=== PATIENT | female | born 1995 | race Caucasian/White ===

== ENCOUNTER 2021-06-27 09:03 | Day surgery (SDC) | payer OTHER ==
[2021-06-27 09:51] VITALS: BMI 27.7
[2021-06-27] MEDS ORDERED: KETAMINE HCL 500 MG/10 ML VIAL ONE (11:11)
[2021-06-27 12:09] VITALS: TEMP 98.6
[2021-06-27 12:51] VITALS: BP 110/78; PULSE 88
[2021-06-28 14:08] LABS: SARS-CoV-2 NAA Not Detected (Not Detected)
== END 2021-06-27 13:00 | disposition home or self-care (01) ==
LOC: FECT 09:03
PROVIDERS: ATTEND Psychiatry & Neurology Psychiatry
PROC: GZB4ZZZ Other Electroconvulsive Therapy (ICD-10-PCS; principal; 2021-06-27 11:00)
DX: F32.9 Major depressive disorder, single episode, unspecified (principal)
CPT/HCPCS: 81025; 90870; 93005; 93010; 94760; C9803; U0003; U0005

== ENCOUNTER 2021-07-01 08:13 | Day surgery (SDC) | payer OTHER ==
[2021-06-28 15:48] VITALS: BMI 27.7
[2021-07-01] MEDS ORDERED: KETAMINE HCL 500 MG/10 ML VIAL ONE (09:32)
[2021-07-01] MEDS ORDERED: ONDANSETRON 4 MG/2 ML VIAL ONE (10:41)
[2021-07-01 11:38] VITALS: TEMP 98.1
[2021-07-01 12:17] VITALS: BP 103/59; PULSE 77
[2021-07-02 11:09] LABS: SARS-CoV-2 NAA Not Detected (Not Detected)
== END 2021-07-01 12:00 | disposition home or self-care (01) ==
LOC: FECT 08:13
PROVIDERS: ATTEND Psychiatry & Neurology Psychiatry
PROC: GZB4ZZZ Other Electroconvulsive Therapy (ICD-10-PCS; principal; 2021-07-01 10:30)
DX: F33.2 Major depressive disorder, recurrent severe without psychotic features (principal)
CPT/HCPCS: 81025; 90870; 94760; C9803; U0003; U0005

== ENCOUNTER 2021-07-04 06:20 | Day surgery (SDC) | payer OTHER ==
[2021-07-03 15:16] VITALS: BMI 27.7
[2021-07-04] MEDS ORDERED: KETAMINE HCL 500 MG/10 ML VIAL ONE (08:51)
[2021-07-04 09:25] VITALS: TEMP 98.6
[2021-07-04 10:24] VITALS: BP 122/70; PULSE 66
[2021-07-05 15:07] LABS: SARS-CoV-2 NAA Not Detected (Not Detected)
== END 2021-07-04 10:00 | disposition home or self-care (01) ==
LOC: FECT 06:20
PROVIDERS: ATTEND Psychiatry & Neurology Psychiatry
PROC: GZB4ZZZ Other Electroconvulsive Therapy (ICD-10-PCS; principal; 2021-07-04 09:00)
DX: F25.9 Schizoaffective disorder, unspecified (principal)
CPT/HCPCS: 90870; 94760; C9803; U0003; U0005

== ENCOUNTER 2021-07-08 06:54 | Day surgery (SDC) | payer OTHER ==
[2021-07-02 07:44] VITALS: BMI 27.7
[2021-07-08] MEDS ORDERED: KETAMINE HCL 500 MG/10 ML VIAL ONE (07:48)
[2021-07-08] MEDS ORDERED: SUCCINYLCHOLINE CHLORIDE 200 MG/10 ML SYRINGE ONE (08:02)
[2021-07-08] MEDS ORDERED: PROPOFOL 20 ML ONE (08:02)
[2021-07-08 08:32] VITALS: TEMP 99.1
[2021-07-08 09:19] VITALS: BP 112/74; PULSE 62
[2021-07-09 11:12] LABS: SARS-CoV-2 NAA Not Detected (Not Detected)
== END 2021-07-08 09:35 | disposition home or self-care (01) ==
LOC: FECT 06:54
PROVIDERS: ATTEND Psychiatry & Neurology Psychiatry
PROC: GZB4ZZZ Other Electroconvulsive Therapy (ICD-10-PCS; principal; 2021-07-08 09:00)
DX: F33.2 Major depressive disorder, recurrent severe without psychotic features (principal)
CPT/HCPCS: 81025; 90870; 94760; C9803; U0003; U0005

== ENCOUNTER 2021-07-11 06:40 | Day surgery (SDC) | payer OTHER ==
[2021-07-04 14:41] VITALS: BMI 27.7
[2021-07-11 09:36] VITALS: TEMP 98.1
[2021-07-11 10:02] VITALS: BP 110/67; PULSE 82
[2021-07-12 19:07] LABS: SARS-CoV-2 NAA Not Detected (Not Detected)
== END 2021-07-11 10:00 | disposition home or self-care (01) ==
LOC: FECT 06:40
PROVIDERS: ATTEND Psychiatry & Neurology Psychiatry
PROC: GZB4ZZZ Other Electroconvulsive Therapy (ICD-10-PCS; principal; 2021-07-11 08:30)
DX: F32.9 Major depressive disorder, single episode, unspecified (principal)
CPT/HCPCS: 90870; 94760; C9803; U0003; U0005

== ENCOUNTER 2021-07-15 06:32 | Day surgery (SDC) | payer OTHER ==
[2021-07-09 15:50] VITALS: BMI 27.7
[2021-07-15 09:11] VITALS: TEMP 97.5
[2021-07-15 10:11] VITALS: BP 110/70; PULSE 75
[2021-07-16 11:08] LABS: SARS-CoV-2 NAA Not Detected (Not Detected)
== END 2021-07-15 10:20 | disposition home or self-care (01) ==
LOC: FECT 06:32
PROVIDERS: ATTEND Psychiatry & Neurology Psychiatry
PROC: GZB4ZZZ Other Electroconvulsive Therapy (ICD-10-PCS; principal; 2021-07-15 09:00)
DX: F25.9 Schizoaffective disorder, unspecified (principal)
CPT/HCPCS: 81025; 90870; 94760; C9803; U0003; U0005

== ENCOUNTER 2021-07-18 06:38 | Day surgery (SDC) | payer OTHER ==
[2021-07-16 15:50] VITALS: BMI 27.7
[2021-07-18 12:01] VITALS: TEMP 97.8
[2021-07-18 12:10] VITALS: BP 102/61; PULSE 76
[2021-07-19 21:06] LABS: SARS-CoV-2 NAA Not Detected (Not Detected)
== END 2021-07-18 09:40 | disposition home or self-care (01) ==
LOC: FECT 06:38
PROVIDERS: ATTEND Psychiatry & Neurology Psychiatry
PROC: GZB4ZZZ Other Electroconvulsive Therapy (ICD-10-PCS; principal; 2021-07-18 08:00)
DX: F25.9 Schizoaffective disorder, unspecified (principal)
CPT/HCPCS: 81025; 90870; 94760; C9803; U0003; U0005

== ENCOUNTER 2021-07-22 06:30 | Day surgery (SDC) | payer OTHER ==
[2021-07-18 09:50] VITALS: BMI 29.7
[2021-07-22 09:33] VITALS: TEMP 97.5
[2021-07-22 09:52] VITALS: BP 109/62; PULSE 76
[2021-07-23 13:12] LABS: SARS-CoV-2 NAA Not Detected (Not Detected)
== END 2021-07-22 09:40 | disposition home or self-care (01) ==
LOC: FECT 06:30
PROVIDERS: ATTEND Psychiatry & Neurology Psychiatry
PROC: GZB4ZZZ Other Electroconvulsive Therapy (ICD-10-PCS; principal; 2021-07-22 08:30)
DX: F33.2 Major depressive disorder, recurrent severe without psychotic features (principal)
CPT/HCPCS: 81025; 90870; 94760; C9803; U0003; U0005

== ENCOUNTER 2021-07-25 06:36 | Day surgery (SDC) | payer OTHER ==
[2021-07-23 07:44] VITALS: BMI 29.7
[2021-07-25 09:57] VITALS: TEMP 98
[2021-07-25 10:14] VITALS: BP 96/74; PULSE 88
[2021-07-26 12:08] LABS: SARS-CoV-2 NAA Not Detected (Not Detected)
== END 2021-07-25 10:05 | disposition home or self-care (01) ==
LOC: FECT 06:36
PROVIDERS: ATTEND Psychiatry & Neurology Psychiatry
PROC: GZB4ZZZ Other Electroconvulsive Therapy (ICD-10-PCS; principal; 2021-07-25 09:00)
DX: F25.9 Schizoaffective disorder, unspecified (principal)
CPT/HCPCS: 90870; 94760; C9803; U0003; U0005

== ENCOUNTER 2021-07-30 05:57 | Day surgery (SDC) | payer OTHER ==
[2021-07-24 14:17] VITALS: BMI 29.7
[2021-07-30 10:37] VITALS: TEMP 98.1
[2021-07-30 10:38] VITALS: BP 105/63; PULSE 79
[2021-07-31 10:08] LABS: SARS-CoV-2 NAA Not Detected (Not Detected)
== END 2021-07-30 10:15 | disposition home or self-care (01) ==
LOC: FECT 05:57
PROVIDERS: ATTEND Psychiatry & Neurology Psychiatry
PROC: GZB4ZZZ Other Electroconvulsive Therapy (ICD-10-PCS; principal; 2021-07-30 09:01)
DX: F25.1 Schizoaffective disorder, depressive type (principal)
CPT/HCPCS: 81025; 90870; 94760; C9803; U0003; U0005

== ENCOUNTER 2021-08-05 06:16 | Day surgery (SDC) | payer OTHER ==
[2021-07-30 17:33] VITALS: BMI 29.7
[2021-08-05 09:00] VITALS: TEMP 97.5
[2021-08-05 10:08] VITALS: BP 104/64; PULSE 72
[2021-08-06 12:09] LABS: SARS-CoV-2 NAA Not Detected (Not Detected)
== END 2021-08-05 10:10 | disposition home or self-care (01) ==
LOC: FECT 06:16
PROVIDERS: ATTEND Psychiatry & Neurology Psychiatry
PROC: GZB4ZZZ Other Electroconvulsive Therapy (ICD-10-PCS; principal; 2021-08-05 09:00)
DX: F25.1 Schizoaffective disorder, depressive type (principal)
CPT/HCPCS: 81025; 90870; 94760; C9803; U0003; U0005

== ENCOUNTER 2021-08-08 06:21 | Day surgery (SDC) | payer OTHER ==
[2021-07-25 18:41] VITALS: BMI 29.7
[2021-08-08] MEDS ORDERED: ONDANSETRON 4 MG/2 ML VIAL ONE (08:56)
[2021-08-08] MEDS ORDERED: PROPOFOL 20 ML ONE (08:56)
[2021-08-08] MEDS ORDERED: KETOROLAC TROMETHAMINE 30 MG/1 ML VIAL ONE (08:56)
[2021-08-08] MEDS ORDERED: DEXAMETHASONE SOD PHOSPHATE 4 MG/1 ML VIAL ONE (08:56)
[2021-08-08 09:25] VITALS: TEMP 98.2
[2021-08-08 10:07] VITALS: BP 114/76; PULSE 88
[2021-08-08] MEDS ORDERED: ACETAMINOPHEN 325 MG TABLET (FP) PO PRN (11:59)
[2021-08-09 13:08] LABS: SARS-CoV-2 NAA Not Detected (Not Detected)
== END 2021-08-08 10:09 | disposition home or self-care (01) ==
LOC: FECT 06:21
PROVIDERS: ATTEND Psychiatry & Neurology Psychiatry
PROC: GZB4ZZZ Other Electroconvulsive Therapy (ICD-10-PCS; principal; 2021-08-08 09:00)
DX: F25.9 Schizoaffective disorder, unspecified (principal)
CPT/HCPCS: 90870; 94760; C9803; U0003; U0005

== ENCOUNTER 2021-08-12 06:18 | Day surgery (SDC) | payer OTHER ==
[2021-08-08 16:14] VITALS: BMI 29.7
[2021-08-12 09:20] VITALS: TEMP 97.8
[2021-08-12 09:41] VITALS: BP 104/64; PULSE 76
[2021-08-13 13:08] LABS: SARS-CoV-2 NAA Not Detected (Not Detected)
== END 2021-08-12 09:43 | disposition home or self-care (01) ==
LOC: FECT 06:18
PROVIDERS: ATTEND Psychiatry & Neurology Psychiatry
PROC: GZB4ZZZ Other Electroconvulsive Therapy (ICD-10-PCS; principal; 2021-08-12 08:27)
DX: F25.1 Schizoaffective disorder, depressive type (principal)
CPT/HCPCS: 81025; 90870; 94760; C9803; U0003; U0005

== ENCOUNTER 2021-08-19 06:11 | Day surgery (SDC) | payer OTHER ==
[2021-08-15 07:58] VITALS: BMI 29.7
[2021-08-19 09:36] VITALS: TEMP 98.2
[2021-08-19 10:09] VITALS: BP 109/68; PULSE 79
[2021-08-20 14:09] LABS: SARS-CoV-2 NAA Not Detected (Not Detected)
== END 2021-08-19 10:10 | disposition home or self-care (01) ==
LOC: FECT 06:11
PROVIDERS: ATTEND Psychiatry & Neurology Psychiatry
PROC: GZB4ZZZ Other Electroconvulsive Therapy (ICD-10-PCS; principal; 2021-08-19 08:34)
DX: F25.1 Schizoaffective disorder, depressive type (principal)
CPT/HCPCS: 81025; 90870; 94760; C9803; U0003; U0005

== ENCOUNTER 2021-09-02 08:31 | Day surgery (SDC) | payer OTHER ==
[2021-08-27 13:01] VITALS: BMI 29.7
[2021-09-02 11:54] VITALS: TEMP 97.8
[2021-09-02 11:55] VITALS: BP 102/62; PULSE 89
== END 2021-09-02 11:55 | disposition home or self-care (01) ==
LOC: FECT 08:31
PROVIDERS: ATTEND Psychiatry & Neurology Psychiatry
PROC: GZB4ZZZ Other Electroconvulsive Therapy (ICD-10-PCS; principal; 2021-09-02 10:37)
DX: F25.1 Schizoaffective disorder, depressive type (principal)
CPT/HCPCS: 81025; 90870; 94760

== ENCOUNTER 2021-09-10 06:40 | Day surgery (SDC) | payer OTHER ==
[2021-09-10 07:05] VITALS: BMI 29.7
[2021-09-10 08:43] VITALS: TEMP 98.7
[2021-09-10 10:04] VITALS: BP 103/66; PULSE 84
[2021-09-10] MEDS ORDERED: ONDANSETRON 4 MG/2 ML VIAL IVPUSH PRN (11:34)
[2021-09-10] MEDS ORDERED: LACTATED RINGERS SOLUTION 1,000 ML IV SCH (11:45)
== END 2021-09-10 09:45 | disposition home or self-care (01) ==
LOC: FECT 06:40
PROVIDERS: ATTEND Psychiatry & Neurology Psychiatry
PROC: GZB4ZZZ Other Electroconvulsive Therapy (ICD-10-PCS; principal; 2021-09-10 08:20)
DX: F20.9 Schizophrenia, unspecified (principal)
CPT/HCPCS: 81025; 90870; 94760

== ENCOUNTER 2021-09-23 06:54 | Day surgery (SDC) | payer OTHER ==
[2021-09-23 07:18] VITALS: BMI 29.7
[2021-09-23 10:08] VITALS: BP 109/69; PULSE 78; TEMP 98.2
== END 2021-09-23 10:13 | disposition home or self-care (01) ==
LOC: FECT 06:54
PROVIDERS: ATTEND Psychiatry & Neurology Psychiatry
PROC: GZB4ZZZ Other Electroconvulsive Therapy (ICD-10-PCS; principal; 2021-09-23 08:39)
DX: F25.1 Schizoaffective disorder, depressive type (principal)
CPT/HCPCS: 81025; 90870; 94760

== ENCOUNTER 2021-10-07 08:05 | Day surgery (SDC) | payer OTHER ==
[2021-10-01 11:28] VITALS: BMI 29.7
== END 2021-10-07 09:15 | disposition home or self-care (01) ==
LOC: FECT 08:05
PROVIDERS: ATTEND Psychiatry & Neurology Psychiatry
PROC: GZB4ZZZ Other Electroconvulsive Therapy (ICD-10-PCS; principal; 2021-10-07)
DX: Z53.09 Procedure and treatment not carried out because of other contraindication (principal); U07.1 COVID-19; F25.1 Schizoaffective disorder, depressive type

== ENCOUNTER 2021-10-11 07:31 | Day surgery (SDC) | payer OTHER ==
[2021-10-09 15:25] VITALS: BMI 29.7
[2021-10-11] MEDS ORDERED: GLYCOPYRROLATE 0.2 MG/1 ML VIAL ONE (09:36)
[2021-10-11] MEDS ORDERED: ONDANSETRON 4 MG/2 ML VIAL ONE (09:36)
[2021-10-11] MEDS ORDERED: KETOROLAC TROMETHAMINE 30 MG/1 ML VIAL ONE (09:36)
[2021-10-11] MEDS ORDERED: PROPOFOL 20 ML ONE (09:37)
[2021-10-11] MEDS ORDERED: ACETAMINOPHEN 325 MG TABLET (FP) PO PRN (10:02)
[2021-10-11 10:47] VITALS: BP 103/60; PULSE 86; TEMP 98
== END 2021-10-11 10:50 | disposition home or self-care (01) ==
LOC: FECT 07:31
PROVIDERS: ATTEND Psychiatry & Neurology Psychiatry
PROC: GZB4ZZZ Other Electroconvulsive Therapy (ICD-10-PCS; principal; 2021-10-11 09:39)
DX: F25.9 Schizoaffective disorder, unspecified (principal)
CPT/HCPCS: 84703; 90870; 94760

== ENCOUNTER 2021-10-21 07:27 | Day surgery (SDC) | payer OTHER ==
[2021-10-14 14:35] VITALS: BMI 29.7
[2021-10-21] MEDS ORDERED: ACETAMINOPHEN 500 MG TABLET (FP) PO PRN (09:33)
[2021-10-21] MEDS ORDERED: PROMETHAZINE HCL 25 MG/1 ML VIAL IVPUSH PRN (09:33)
[2021-10-21] MEDS ORDERED: LACTATED RINGERS SOLUTION 1,000 ML IV SCH (09:45)
[2021-10-21 12:04] VITALS: BP 101/69; PULSE 65; TEMP 98.2
== END 2021-10-21 10:35 | disposition home or self-care (01) ==
LOC: FECT 07:27
PROVIDERS: ATTEND Psychiatry & Neurology Psychiatry
PROC: GZB4ZZZ Other Electroconvulsive Therapy (ICD-10-PCS; principal; 2021-10-21 09:07)
DX: F25.1 Schizoaffective disorder, depressive type (principal)
CPT/HCPCS: 81025; 90870; 94760

== ENCOUNTER 2021-11-19 07:45 | Day surgery (SDC) | payer OTHER ==
[2021-10-29 08:04] VITALS: BMI 29.7
[2021-11-19] MEDS ORDERED: ONDANSETRON 4 MG/2 ML VIAL ONE (09:57)
[2021-11-19] MEDS ORDERED: ONDANSETRON 4 MG/2 ML VIAL IVPUSH ONE (10:03)
[2021-11-19 10:47] VITALS: PULSE 89
[2021-11-19 11:01] VITALS: BP 113/78; TEMP 97
== END 2021-11-19 11:00 | disposition home or self-care (01) ==
LOC: FECT 07:45
PROVIDERS: ATTEND Psychiatry & Neurology Psychiatry
PROC: GZB4ZZZ Other Electroconvulsive Therapy (ICD-10-PCS; principal; 2021-11-19 09:09)
DX: F25.1 Schizoaffective disorder, depressive type (principal)
CPT/HCPCS: 84703; 90870; 94760